=== PATIENT | female | born 1960 | race Asian ===

== ENCOUNTER → 2016-12-28 | Outpatient (CLI) | payer OTHER ==
[~2016-12-28] VITALS: Ht 157.5 cm; Wt 58.1 kg
[~2016-12-28] MED LIST: GLUC500C5 PO; LIDOCAINE 2% INJ 100 MG/5 ML SDV (FOR ANES.) As Ordered ONE; LR 1,000 ML IV SCH; MULT1TAB10 PO; NS 1,000 ML IV SCH; OMEG100011 PO; OMEP20CA3 PO; PROPOFOL 200 MG/20 ML VIAL As Ordered ONE; PROPOFOL 500 MG/50 ML VIAL As Ordered ONE
--- NOTE | 2016-12-28 11:52 | ROOR ---
Patient Name: Archie Mayorga Procedure Date: 12/28/2016 11:36 AM Date of : 1960 Age: 56 Room: [facility] Gender: Female Note Status: Finalized Procedure: Upper GI endoscopy Indications: Heartburn, Chest pain (non cardiac) Providers: Octavio TAY MD Referring MD: YOSEF NAVAS MD Requesting Provider: Medicines: Monitored Anesthesia Care Complications: No immediate complications. Procedure: Pre-Anesthesia Assessment: - The heart rate, respiratory rate, oxygen saturations, blood pressure, adequacy of pulmonary ventilation, and response to care were monitored throughout the procedure. The Endoscope was introduced through the mouth, and advanced to the second part of duodenum. The upper GI endoscopy was accomplished without difficulty. The patient tolerated the procedure well. Findings: Mild inflammation characterized by erythema was found in the gastric antrum. Biopsies were taken with a cold forceps for Helicobacter pylori testing. The exam of the stomach was otherwise normal. The examined esophagus was normal. The examined duodenum was normal. Impression: - Normal esophagus. - Mild Gastritis. Biopsied. - Stomach is otherwise normal. - Normal examined duodenum. Recommendation: - Await pathology results. - Continue present medications. - Telephone endoscopist for pathology results in 2 weeks. Octavio Tay MD Octavio TAY MD 12/28/2016 11:51:48 AM This report has been signed electronically. Number of Addenda: 0 Note Initiated On: 12/28/2016 11:36 AM Estimated Blood Loss: Estimated blood loss: none.
--- NOTE | 2016-12-28 12:12 | ROOR ---
Patient Name: Archie Mayorga Procedure Date: 12/28/2016 11:37 AM Date of : 1960 Age: 56 Room: [facility] Gender: Female Note Status: Finalized Procedure: Colonoscopy Indications: Hematochezia Providers: Octavio TAY MD Referring MD: YOSEF NAVAS MD Requesting Provider: Medicines: Monitored Anesthesia Care Complications: No immediate complications. Procedure: Pre-Anesthesia Assessment: - The heart rate, respiratory rate, oxygen saturations, blood pressure, adequacy of pulmonary ventilation, and response to care were monitored throughout the procedure. The Colonoscope was introduced through the anus and advanced to 5 cm into the ileum. The colonoscopy was performed without difficulty. The patient tolerated the procedure well. The quality of the bowel preparation was good. Findings: The perianal and digital rectal examinations were normal. (Exam: Complete, Prep: Good or Excellent.) Localized mild inflammation characterized by erythema was found in the rectum. Biopsies were taken with a cold forceps for histology. Two sessile polyps were found in the cecum and ileocecal valve. The polyps were diminutive in size. These polyps were removed with a jumbo cold forceps. Resection and retrieval were complete. The exam was otherwise without abnormality on direct and retroflexion views. Impression: - Localized mild inflammation was found in the rectum secondary to proctitis. Biopsied. (acute/prep related vs chronic). - Two diminutive polyps in the cecum and at the ileocecal valve, removed with a jumbo cold forceps. Resected and retrieved. - The examination of the colon was otherwise normal on direct and retroflexion views. - The terminal ileum is normal. Recommendation: - Telephone endoscopist for pathology results in 2 weeks. Octavio Tay MD Octavio TAY MD 12/28/2016 12:11:56 PM This report has been signed electronically. Number of Addenda: 0 Note Initiated On: 12/28/2016 11:37 AM Estimated Blood Loss: Estimated blood loss: none.
[2016-12-28 12:42] VITALS: BP 114/75
== END | disposition home or self-care (01) ==
LOC: M OPP 10:02
PROVIDERS: ATTEND Internal Medicine Gastroenterology
DX: K92.1 Melena (principal); D12.0 Benign neoplasm of cecum; K62.89 Other specified diseases of anus and rectum; R12 Heartburn; R07.89 Other chest pain; K29.70 Gastritis, unspecified, without bleeding; R10.9 Unspecified abdominal pain; K21.9 Gastro-esophageal reflux disease without esophagitis; M19.90 Unspecified osteoarthritis, unspecified site; F41.9 Anxiety disorder, unspecified; R51 Headache; Z88.8 Allergy status to other drugs, medicaments and biological substances; Z79.899 Other long term (current) drug therapy

== ENCOUNTER → 2017-11-09 | Outpatient (REF) | payer OTHER ==
[2017-11-09 13:52] LABS: HEPATITIS B SURFACE ANTIBODY POSITIVE (POSITIVE)
[2017-11-09 13:54] LABS: C REACTIVE PROTEIN QUANTITATIV < 0.30 MG/DL (0.00-0.30); TOTAL PROTEIN 8.2 GM/DL (6.4-8.2)
[2017-11-09 13:57] LABS: SLIDE REVIEW Report; SOURCE PERIPHERAL SMEAR
[2017-11-09 14:02] LABS: HEPATITIS B SURFACE ANTIGEN NEGATIVE (NEGATIVE)
[2017-11-09 14:06] LABS: ERYTHROCYTE SEDIMENTATION RATE 13 mm/hr (0-30)
[2017-11-09 14:30] LABS: HEPATITIS C VIRUS ABY INDEX 0.1 INDEX (<0.8)
[2017-11-09 14:30] LABS: HEPATITIS B CORE ANTIBODY IGM NEGATIVE (NEGATIVE)
[2017-11-11 00:07] LABS: FREE KAPPA LIGHT CHAINS SERUM 19.5 mg/L (3.3-19.4); KAPPA/LAMBDA RATIO SERUM 1.08 (0.26-1.65)
[2017-11-13 11:48] LABS: ALBUMIN 4.67 GM/DL (3.29-5.55); ALBUMIN % 56.9 % (55.8-66.1); ALPHA-1-GLOBULIN % 2.9 % (2.9-4.9); ALPHA-1-GLOBULINS 0.24 GM/DL (0.17-0.41); ALPHA-2-GLOBULINS % 8.5 % (7.1-11.8); BETA-1-GLOBULINS % 5.4 % (4.7-7.2); BETA-2-GLOBULINS % 5.1 % (3.2-6.5); GAMMA GLOBULIN % 21.2 % (11.1-18.8)
[2017-11-13 11:49] LABS: BETA-1-GLOBULINS 0.44 GM/DL (0.28-0.60); BETA-2-GLOBULINS 0.42 GM/DL (0.19-0.55); GAMMA GLOBULINS 1.74 GM/DL (0.65-1.58)
== END ==
LOC: M LAB REF 13:17
DX: D72.819 Decreased white blood cell count, unspecified (principal); I73.00 Raynaud's syndrome without gangrene
CPT/HCPCS: 84165

== ENCOUNTER → 2017-11-26 | Outpatient (CLI) | payer OTHER ==
[~2017-11-26] MED LIST changes: -GLUC500C5 PO; -LIDOCAINE 2% INJ 100 MG/5 ML SDV (FOR ANES.) As Ordered ONE; -LR 1,000 ML IV SCH; -MULT1TAB10 PO; -NS 1,000 ML IV SCH; -OMEG100011 PO; -OMEP20CA3 PO; +PROHANCE 279.3MG/ML 15ML VIAL (A9576) As Ordered; -PROPOFOL 200 MG/20 ML VIAL As Ordered ONE; -PROPOFOL 500 MG/50 ML VIAL As Ordered ONE
== END ==
LOC: M RAD 07:41
DX: D72.819 Decreased white blood cell count, unspecified (principal); N28.9 Disorder of kidney and ureter, unspecified
CPT/HCPCS: A9576

== ENCOUNTER → 2017-12-06 | Outpatient (CLI) | payer OTHER ==
[~2017-12-06] MED LIST changes: +GASTROGRAFIN SOLUTION 30ML (Q9963) As Ordered; +ISOVUE-370 76% 100ML VIAL (Q9967) As Ordered; -PROHANCE 279.3MG/ML 15ML VIAL (A9576) As Ordered
== END ==
LOC: M RAD 09:15
DX: N28.9 Disorder of kidney and ureter, unspecified (principal)
CPT/HCPCS: Q9963

== ENCOUNTER → 2020-12-11 | Outpatient (CLI) | payer SELFPAY ==
[~2020-12-11] MED LIST changes: -GASTROGRAFIN SOLUTION 30ML (Q9963) As Ordered; +GLUC10002 PO; +GLUC500C5 PO; -ISOVUE-370 76% 100ML VIAL (Q9967) As Ordered; +MULT1TAB10 PO; +MULTCAP PO; +NORV5TAB PO; +OMEG100011 PO; +OMEP1CAP73 PO
== END ==
LOC: M LABSMTC 09:33
PROVIDERS: ATTEND Pediatrics
DX: Z20.822 Contact with and (suspected) exposure to COVID-19 (principal)

== ENCOUNTER → 2021-10-20 | Outpatient (CLI) | payer OTHER ==
[~2021-10-20] MED LIST changes: +E-Z-GAS II EFFERVESCENT PACKET (SODIUM BICARB./CITRIC ACID/SIMETHICONE) As Ordered ONE; +E-Z-HD 98% w/w 340GM SUSP BTL As Ordered ONE; +E-Z-PAQUE 96% w/w SUSP 176GM BTL As Ordered ONE
== END ==
LOC: M RAD 08:46
PROVIDERS: ATTEND Family Medicine
DX: Z53.9 Procedure and treatment not carried out, unspecified reason (principal); R13.10 Dysphagia, unspecified

== ENCOUNTER → 2021-11-09 | Outpatient (CLI) | payer OTHER | LOC: M RAD 07:57 | PROVIDERS: ATTEND Family Medicine | DX: R13.10 Dysphagia, unspecified (principal) ==

== ENCOUNTER 2022-02-08 10:04 | Day surgery (SDC) | payer OTHER ==
[~2022-02-08] VITALS: Ht 157.5 cm; Wt 52.6 kg
[~2022-02-08 10:04] MED LIST changes: -E-Z-GAS II EFFERVESCENT PACKET (SODIUM BICARB./CITRIC ACID/SIMETHICONE) As Ordered ONE; -E-Z-HD 98% w/w 340GM SUSP BTL As Ordered ONE; -E-Z-PAQUE 96% w/w SUSP 176GM BTL As Ordered ONE; +NS 1,000 ML IV ONE; +OCUV1CAP4 PO; +OMEGCAP9 PO; +REFR0.1D OU; +VITMTA PO
[2022-02-08] MEDS ORDERED: LIDOCAINE 2% INJ 100 MG/5 ML SYRINGE As Ordered ONE (12:06)
[2022-02-08] MEDS ORDERED: propofoL 200 MG/20 ML VIAL As Ordered ONE (12:06)
[2022-02-08] MEDS ORDERED: fentaNYL 100 MCG/2 ML INJECTION As Ordered ONE (12:17)
[2022-02-08 12:50] VITALS: BP 125/73
== END 2022-02-08 13:05 | disposition home or self-care (01) ==
LOC: M OPP 10:04
PROVIDERS: ATTEND Surgery
DX: Z12.11 Encounter for screening for malignant neoplasm of colon (principal); Z86.010 Personal history of colon polyps; R13.10 Dysphagia, unspecified; R12 Heartburn; I73.00 Raynaud's syndrome without gangrene; Z79.899 Other long term (current) drug therapy; Z88.8 Allergy status to other drugs, medicaments and biological substances
CPT/HCPCS: 43235; 45378; J3010